=== PATIENT | female | born 1980 | race Caucasian/White ===

== ENCOUNTER 2021-09-14 08:20 | Emergency (ER) | payer OTHER ==
[~2021-09-14 08:20] MED LIST: ADDERALL 30 MG30 MG PO; CITRATE OF MAG296 ML PO; CLARITIN10 MG PO; METAMUCIL1 DOSE PO; MOBIC7.5 MG PO; NAPHCON-A EYE D15 ML EYEBOTH; NEURONTIN400 MG PO; SKELAXIN800 MG PO; SUBOXONE 2 MG-1 EACH PO; VICODIN 10/3251 EACH PO
[2021-09-14 08:50] LABS: BASOPHIL 0.8 % (0-2); EOSINOPHIL 0.8 % (0-5); HCT 39.2 % (37.0-47.0); HGB 13.4 g/dl (12.5-16.0); LYMPHOCYTE 21.8 % (15-48); MCH 29.8 pg (25.0-31.0); MCHC 34.2 g/dL (32.0-36.0); MCV 87.1 fL (78.0-100.0); MONOCYTE 7.2 % (0-12); MPV 9.5 fL (6.0-9.5); NEUTROPHIL 69.2 % (41-80); NRBC 0; PLT 391 K/uL (150-400); RDW 12.6 % (11.5-14.0); WBC 8.4 K/uL (4.0-10.5)
[2021-09-14 09:17] LABS: ALBUMIN 3.7 g/dL (3.4-5.0); BILIRUBIN - TOTAL 0.4 mg/dL (0.2-1.0); BUN/CREAT RATIO (CALC) 12.2 RATIO; CREATININE 0.74 mg/dL (0.51-0.95); GLOBULIN (CALCULATION) 4.5 g/dL; POTASSIUM 3.5 mmol/L (3.5-5.1); TOTAL PROTEIN 8.2 g/dL (6.4-8.2)
[2021-09-14 10:58] LABS: ECSTASY (MDMA) POSITIVE (NEGATIVE); MARIJUANA (THC) NEGATIVE (NEGATIVE); METHADONE POSITIVE (NEGATIVE); OPIATES POSITIVE (NEGATIVE)
[2021-09-14 10:59] LABS: BARBITURATES NEGATIVE (NEGATIVE)
[2021-09-14 11:00] LABS: AMPHETAMINES NEGATIVE (NEGATIVE); OXYCODONE NEGATIVE (NEGATIVE)
[2021-09-14 11:46] LABS: BILIRUBIN 2+ mg/dL (NEGATIVE); BLOOD NEGATIVE Ery/uL (NEGATIVE); CLARITY HAZY (CLEAR); COLOR YELLOW (YELLOW); GLUCOSE (U) NORMAL (NORMAL); LEUKOCYTES NEGATIVE Leu/uL (NEGATIVE); NITRITE NEGATIVE (NEGATIVE); PROTEIN TRACE (LOW) mg/dL (NEGATIVE); SPECIFIC GRAVITY >=1.030 (1.001-1.030); UROBILINOGEN >=8.0 mg/dL (0.2-1.0)
[2021-09-14 12:02] LABS: AMORPHOUS URATES CRYSTALS MODERATE; URINARY WBC RARE
== END 2021-09-14 12:35 | disposition home or self-care (01) ==
LOC: FER 08:20
PROVIDERS: Emergency Medicine
DX: F11.10 Opioid abuse, uncomplicated (principal)
CPT/HCPCS: 36415; 74022; 80053; 80305; 81001; 85025